=== PATIENT | female | born 1990 | race Hispanic/Latino ===

== ENCOUNTER 2016-11-18 10:46 | Emergency (ER) | payer OTHER ==
[~2016-11-18] VITALS: Ht 152.4 cm; Wt 57.3 kg
[~2016-11-18 10:46] MED LIST: NO HOME MEDS; ULTRAM50 MG PO
[2016-11-18 13:54] VITALS: BP 142/86
== END 2016-11-18 14:05 | disposition home or self-care (01) | DRG 552 ==
LOC: ED 10:46
DX: S16.1XXA Strain of muscle, fascia and tendon at neck level, initial encounter (principal); V59.88XA Occupant (driver) (passenger) of pick-up truck or van injured in other specified transport accidents, initial encounter; Y92.410 Unspecified street and highway as the place of occurrence of the external cause